=== PATIENT | female | born 1955 | race Caucasian/White ===

== ENCOUNTER 2018-04-20 22:18 | Emergency (ER) | payer OTHER ==
[~2018-04-20] VITALS: Ht 170.2 cm; Wt 73.9 kg
[~2018-04-20 22:18] MED LIST: METF500T16 PO; METO1TAB8 PO
--- NOTE | 2018-04-20 22:58 | PHYS DOC ---
Past History Past Medical History: Cancer, Diabetes, High Cholesterol, Hypertension Past Surgical History: Cancer Surgery, Cholecystectomy, Hysterectomy, Other Smoking: Non-smoker Alcohol Use: Rarely Drug Use: None Adult General Chief Complaint Chief Complaint: FATIGUE HPI HPI Patient is a 62 year old female who presents with complaint of palpitations. Patient states her symptoms started earlier this evening. The patient denies any previous history of palpitations. Patient states that she feels like her "pulse is in my stomach" but denies any associated pain. Patient states that she has felt fatigued but states that she was up late last night making [employer] cookies and thinks that this may be contributing to her symptoms. Patient has history of diabetes mellitus, hypertension, and denies this history of cardiac disease. Patient states that she takes metoprolol for hypertension. Denies diaphoresis, shortness of breath, or nausea. Review of Systems Review of Systems Constitutional: Fatigue, denies fever or chills [] Eyes: Denies change in visual acuity, redness, or eye pain [] HENT: Denies nasal congestion or sore throat [] Respiratory: Denies cough or shortness of breath [] Cardiovascular: Palpitations, denies chest pain [] GI: Denies abdominal pain, nausea, vomiting, bloody stools or diarrhea [] : Denies dysuria or hematuria [] Musculoskeletal: Denies back pain or joint pain [] Integument: Denies rash or skin lesions [] Neurologic: Denies headache, focal weakness or sensory changes [] All other systems were reviewed and found to be within normal limits, except as documented in this note. Allergies Allergies Allergies Coded Allergies Type Severity Reaction Last Updated Verified Penicillins Allergy Intermediate 10/12/13 Yes Physical Exam Physical Exam Constitutional: Well developed, well nourished, no acute distress, non-toxic appearance. [] HENT: Normocephalic, atraumatic, bilateral external ears normal, oropharynx moist, no oral exudates, nose normal. [] Eyes: PERRLA, EOMI, conjunctiva normal, no discharge. [] Neck: Normal range of motion, no tenderness, supple, no stridor. [] Cardiovascular:Heart rate regular rhythm, no murmur [] Lungs & Thorax: Bilateral breath sounds clear to auscultation [] Abdomen: Bowel sounds normal, soft, no tenderness, no masses, no pulsatile masses. [] Skin: Warm, dry, no erythema, no rash. [] Back: No tenderness, no CVA tenderness. [] Extremities: No tenderness, no cyanosis, no clubbing, ROM intact, no edema. [] Neurologic: Alert and oriented X 3, normal motor function, normal sensory function, no focal deficits noted. [] Psychologic: Affect normal, judgement normal, mood normal. [] Current Patient Data Vital Signs Vital Signs Date Time Temp Pulse Resp B/P (MAP) Pulse Ox O2 Delivery O2 Flow Rate FiO2 04/20/18 22:28 98.1 65 18 98 Room Air Lab Results Laboratory Tests Test 04/20/18 23:00 White Blood Count 6.1 x10^3/uL Red Blood Count 3.83 x10^6/uL Hemoglobin 12.6 g/dL Hematocrit 36.2 % Mean Corpuscular Volume 94 fL Mean Corpuscular Hemoglobin 33 pg Mean Corpuscular Hemoglobin Concent 35 g/dL Red Cell Distribution Width 13.0 % Platelet Count 164 x10^3/uL Neutrophils (%) (Auto) 56 % Lymphocytes (%) (Auto) 32 % Monocytes (%) (Auto) 9 % Eosinophils (%) (Auto) 3 % Basophils (%) (Auto) 0 % Neutrophils # (Auto) 3.5 x10^3uL Lymphocytes # (Auto) 1.9 x10^3/uL Monocytes # (Auto) 0.5 x10^3/uL Eosinophils # (Auto) 0.2 x10^3/uL Basophils # (Auto) 0.0 x10^3/uL Sodium Level 143 mmol/L Potassium Level 3.4 mmol/L Chloride Level 104 mmol/L Carbon Dioxide Level 30 mmol/L Anion Gap 9 Blood Urea Nitrogen 16 mg/dL Creatinine 0.9 mg/dL Estimated GFR (Cockcroft-Gault) 63.4 BUN/Creatinine Ratio 18 Glucose Level 110 mg/dL Calcium Level 9.1 mg/dL Magnesium Level 1.7 mg/dL Total Bilirubin 0.3 mg/dL Aspartate Amino Transf (AST/SGOT) 17 U/L Alanine Aminotransferase (ALT/SGPT) 24 U/L Alkaline Phosphatase 62 U/L Creatine Kinase 101 U/L Creatine Kinase MB (Mass) 1.9 ng/mL Creatine Kinase MB Relative Index 1.9 % Troponin I Quantitative < 0.017 ng/mL Total Protein 6.9 g/dL Albumin 3.7 g/dL Albumin/Globulin Ratio 1.2 Current Medications Medications (Trade) Dose Ordered Sig/Brooke Route PRN Reason Start Time Stop Time Status Last Admin Dose Admin Magnesium Sulfate 100 ml @ 100 mls/hr 1X ONCE IV 04/21/18 00:30 04/21/18 01:29 04/21/18 00:15 Potassium Chloride (Klor-Con) 40 meq 1X ONCE PO 04/21/18 01:30 04/21/18 01:31 EKG EKG Interpreted by me: Heart rate 60, PVC present, otherwise sinus rhythm, leftward axis, no acute ST/T-wave abnormalities present[] Radiology/Procedures Radiology/[place] [address] IMAGING REPORT Signed PATIENT: SANDRA TAYLOR ACCOUNT: [id number] : 1955 LOCATION: ER AGE: 62 SEX: F EXAM STATUS: REG ER ORD. PHYSICIAN: BARBARA HINKLE MD REASON: palpitations PROCEDURE: CHEST PA & LATERAL Chest PA and lateral 04/20/2018. Reason for exam: Palpitations. History of double mastectomy. Haziness over the lower lungs relates to the overlying breast implants. When compared to the previous study of 12/30/2010, no new infiltrate or effusion is seen. Heart size and pulmonary vascularity appear normal. IMPRESSION: No acute findings. Electronically signed by: Sarahy Rodriguez Jr., MD (04/20/2018 11:35 PM) [facility] DICTATED AND SIGNED BY: SARAHY RODRIGUEZ Jr, MD DATE: 04/20/18 2334 CC: BARBARA HINKLE MD; NON,STAFF ~ [] Course & Med Decision Making Course & Med Decision Making Pertinent Labs and Imaging studies reviewed. (See chart for details) Patient observed in the emergency department with occasional PVCs noted. Patient otherwise had no other significant dysrhythmias and remains stable with no further complaints. Patient had noted hypomagnesemia that was addressed with IV magnesium in the emergency department. Patient also given oral potassium after IV magnesium was given. The patient appears appropriate for outpatient follow-up. Advised to continue metoprolol, limit caffeine intake and other potential stimulants, increase fluid intake, and increase rest with recommended follow-up in the next 3-5 days with primary doctor for reevaluation. Advised return to emergency department for any worsening symptoms. Patient patient's was understanding and in agreement with treatment plan. Dragon Disclaimer Dragon Disclaimer This electronic medical record was generated, in whole or in part, using a voice recognition dictation system. Departure Departure: Impression: Primary Impression: Palpitations Disposition: HOME, SELF-CARE Condition: IMPROVED Referrals: NON,STAFF (PCP) BOBBY MAR MD Patient Instructions: Palpitations Additional Instructions: Follow-up with your primary doctor in 3-5 days for reevaluation. Call the office of Dr. Mar of cardiology for follow-up in the next 5-7 days. Return to the emergency department for any worsening symptoms. BARBARA HINKLE MD Apr 20, 2018 22:58
[2018-04-20 23:23] LABS: BASO % 0 % (0-3); EOS # 0.2 x10^3/uL (0.0-0.7); EOS % 3 % (0-3); HEMATOCRIT 36.2 % (36.0-47.0); HEMOGLOBIN 12.6 g/dL (12.0-15.5); LYMPH # 1.9 x10^3/uL (1.0-4.8); LYMPH % 32 % (24-48); MEAN CORPUSCULAR HEMOGLOBIN 33 pg (25-35); MEAN CORPUSCULAR HGB CONC 35 g/dL (31-37); MEAN CORPUSCULAR VOLUME 94 fL (79-100); MONO # 0.5 x10^3/uL (0.0-1.1); MONO % 9 % (0-9); NEUT # 3.5 x10^3uL (1.8-7.7); NEUT % 56 % (31-73); PLATELET COUNT 164 x10^3/uL (140-400); RED BLOOD COUNT 3.83 x10^6/uL (3.50-5.40); WHITE BLOOD COUNT 6.1 x10^3/uL (4.0-11.0)
[2018-04-20 23:39] LABS: ALBUMIN 3.7 g/dL (3.4-5.0); ALBUMIN/GLOBULIN RATIO 1.2 (1.0-1.7); CALCIUM 9.1 mg/dL (8.5-10.1); CREATININE 0.9 mg/dL (0.6-1.0); GFR 63.4; MAGNESIUM 1.7 mg/dL (1.8-2.4); POTASSIUM 3.4 mmol/L (3.5-5.1); TOTAL BILIRUBIN 0.3 mg/dL (0.2-1.0); TOTAL PROTEIN 6.9 g/dL (6.4-8.2)
--- NOTE | 2018-04-20 23:39 | RAD ---
Chest PA and lateral 04/20/2018. Reason for exam: Palpitations. History of double mastectomy. Haziness over the lower lungs relates to the overlying breast implants. When compared to the previous study of 12/30/2010, no new infiltrate or effusion is seen. Heart size and pulmonary vascularity appear normal. IMPRESSION: No acute findings. Electronically signed by: Te Rodriguez Jr., MD (04/20/2018 11:35 PM) [facility]
[2018-04-21 00:15] VITALS: BP 110/69
[2018-04-21] MEDS ORDERED: MAGNESIUM SULFATE 1GM 100 ML IV ONE (00:30)
[2018-04-21] MEDS ORDERED: POTASSIUM CHLORIDE 20 MEQ TABLET.ER. PO ONE (01:30)
--- NOTE | 2018-04-21 01:30 | EKG ---
[address] [address] Test Date: 2018-04-20 Test Time: 22:31:53 Pat Name: SANDRA TAYLOR Department: Room: Gender: F [place]: : 1955 Requested By: BARBARA HINKLE Order Number: [id number] Reading MD: Measurements Intervals [place] Rate: 60 P: -47 [place]: 164 QRS: -3 QRSD: 78 T: 9 QT: 460 QTc: 460 Interpretive Statements SINUS RHYTHM VENTRICULAR PREMATURE COMPLEX(ES) LEFTWARD AXIS ABNORMAL ECG RI6.01 Unconfirmed report No previous ECG available for comparison
== END 2018-04-21 01:18 | disposition home or self-care (01) ==
LOC: ER 22:18
DX: R00.2 Palpitations (principal); R53.83 Other fatigue; E83.42 Hypomagnesemia; I49.3 Ventricular premature depolarization; E11.9 Type 2 diabetes mellitus without complications; E78.00 Pure hypercholesterolemia, unspecified; I10 Essential (primary) hypertension; Z88.0 Allergy status to penicillin
CPT/HCPCS: 36415; 71046; 80053; 82553; 83735; 84443; 84484; 85025; 93005; 96365; 99284; J3475